=== PATIENT | male | born 2000 | race Caucasian/White ===

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

== ENCOUNTER 2018-02-06 11:44 | Emergency (ER) | payer BC ==
[2018-02-06 11:51] VITALS: BP 144/76; PULSE 109; TEMP 98.9; BMI 20.9
--- NOTE | 2018-02-06 12:48 | PDOC ---
History of Present Illness - General Chief Complaint: Lethargy Stated Complaint: UNABLE TO SLEEP, FATIGUE - History of Present Illness Initial Comments: 17-year-old male without comorbidities presents for evaluation of decreased sleep 2 weeks. He states it got worse over the last 48 hours upon his return from [facility]. He has no other associated symptoms besides tiredness and inability to sleep. 02/06/18 12:44 Past History - Past Medical History Allergies/Adverse Reactions: Allergies Allergy/AdvReac Type Severity Reaction Status Date / Time No Known Allergies Allergy Unverified 02/06/18 12:23 Home Medications: Ambulatory Orders Diphenhydramine [Benadryl -] 50 mg PO DAILY #10 capsule 02/06/18 COPD: No - Surgical History Appendectomy: Yes - Immunization History Immunization Up to Date: Yes - Suicide/Smoking/Psychosocial Hx Smoking History: Never smoked Have you smoked in the past 12 months: Yes Number of Cigarettes Smoked Daily: 0 If you are a former smoker, when did you quit?: MARIJUANA 'Breaking Loose' booklet given: 03/13/16 Hx Alcohol Use: Yes Drug/Substance Use Hx: Yes (LSD 1 month ago) Substance Use Type: Alcohol, Marijuana Review of Systems - Review of Systems Neurological: Yes: See HPI All Other Systems: Reviewed and Negative *Physical Exam - Vital Signs Last Vital Signs Temp Pulse Resp BP Pulse Ox 98.9 F 109 H 18 144/76 100 02/06/18 11:48 02/06/18 11:48 02/06/18 11:48 02/06/18 11:48 02/06/18 11:48 - Physical Exam Comments: HEAD: NC/AT EYES: Conjuntiva clear Ears: Canals and TM's normal NOSE: No d/c THROAT: Moist mucous membrances, oral pharanx clear, uvula midline NECK: Supple without adenopathy CARDIAC: S1 S2 LUNGS: CTA Full and Equal breath sounds ABDOMEN: Soft NT ND MS: Full ROM in all joints without edema NEUROLOGIC: No gross sensory or motor deficits, NVID SKIN: Normal color and temperature no lesions or rashes 02/06/18 12:45 Medical Decision Making - Medical Decision Making I will give him a prescription for Benadryl and have improved follow up with his primary care physician. 02/06/18 12:45 *DC/Admit/Observation/Transfer Diagnosis at time of Disposition: Sleep deficient - Discharge Dispostion Disposition: HOME Condition at time of disposition: Stable Decision to Admit order: No - Referrals Referrals: Jennifer Crockett MD [Primary Care Provider] - - Patient Instructions Printed Discharge Instructions: Insomnia Additional Instructions: Return to the emergency room should his symptoms worsen or go on resolve. Take the medication as directed. Follow up with her primary care physician a 1-2 days for further evaluation and treatment options. - Post Discharge Activity
== END 2018-02-06 13:02 | disposition home or self-care (01) ==
LOC: JERFT 11:44
DX: Z72.820 Sleep deprivation (principal)
CPT/HCPCS: 99281-25

== ENCOUNTER 2018-02-07 08:23 | Emergency (ER) | payer BC ==
[2018-02-07 08:29] VITALS: BP 123/60; PULSE 92; TEMP 98.2; BMI 20.9
[2018-02-07] MEDS ORDERED: SODIUM CHLORIDE 1,000 ML IV STA (09:16)
[2018-02-07 09:38] LABS: BASO % 0.5 % (0-2.0); HEMATOCRIT 43.1 % (35.4-49); HEMOGLOBIN 14.9 GM/dL (11.7-16.9); LYMPH % 17.6 % (8-40); MCH 33.4 pg (25.7-33.7); MCHC 34.6 g/dl (32.0-35.9); MEAN CELL VOLUME 96.4 fl (80-96); MEAN PLT VOLUME 7.7 fl (7.5-11.1); MONO % 8.6 % (3.8-10.2); NEUT % 72.3 % (42.8-82.8); PLATELET COUNT 302 K/MM3 (134-434); RBC 4.47 M/mm3 (4.00-5.60); RDW 11.7 % (11.9-15.9); WHITE BLOOD COUNT 6.4 K/mm3 (4.0-10.0)
[2018-02-07 09:46] LABS: URINE APPEARANCE CLEAR; URINE BILIRUBIN NEGATIVE (<2.0 mg/dL); URINE COLOR LTYELLOW; URINE GLUCOSE (UA) NEGATIVE (NEGATIVE); URINE KETONE NEGATIVE (NEGATIVE); URINE LEUK ESTERASE NEGATIVE (NEGATIVE); URINE NITRITE NEGATIVE (NEGATIVE); URINE PROTEIN NEGATIVE (NEGATIVE); URINE UROBILINOGEN NEGATIVE mg/dL (0.2-1.0)
[2018-02-07 09:54] LABS: COCAINE, UR NEGATIVE ng/ml (CUTOFF=300); METHADONE, UR NEGATIVE ng/ml (CUTOFF=300); OPIATES, URI NEGATIVE ng/ml (CUTOFF=300); PHENCYCLIDINE,URINE NEGATIVE ng/ml (CUTOFF=25); URINE AMPHETAMINES NEGATIVE ng/ml (CUTOFF=500); URINE BARBITURATES NEGATIVE ng/ml (CUTOFF=200); URINE BENZODIAZEPINES NEGATIVE ng/ml (CUTOFF=200)
[2018-02-07 10:09] LABS: ALBUMIN 4.9 g/dl (3.4-5.0); ANION GAP 8 (8-16); CALCIUM 9.6 mg/dL (8.5-10.1); CHLORIDE 104 mmol/L (98-107); CO2 28 mmol/L (21-32); GLUCOSE,RANDOM 95 mg/dL (74-106); POTASSIUM 4.2 mmol/L (3.5-5.1); SGOT/AST 12 U/L (15-37); SGPT/ALT 15 U/L (12-78); SODIUM 140 mmol/L (136-145)
[2018-02-07 10:12] LABS: ALK PHOS 61 U/L (45-117); BLOOD UREA NITROGEN 9 mg/dL (7-18)
--- NOTE | 2018-02-07 10:26 | PDOC ---
History of Present Illness - General Chief Complaint: Psychiatric Stated Complaint: UNABLE TO SLEEP Time Seen by Provider: 02/07/18 08:50 History Source: Patient Exam Limitations: No Limitations - History of Present Illness Initial Comments: 02/07/18 10:29 17-year-old male presents to the emergency room with complaints of difficulty sleeping for the past 4 days. Patient states the past week intermittent bouts of insomnia but has worsened since returning from [facility] on Tuesday night. Patient states was seen here yesterday and was prescribed Benadryl which he took last night and states did not improve his symptoms. Patient states feels very anxious but denies any homicidal suicidal thoughts, hallucinations, or feeling of helplessness. Patient denies psych history but states has used drugs in the past and spelled marijuana approximately 2 weeks ago. Patient denies alcohol usage, family psych history or recent illness. Patient has no complaint of chest pain, difficulty breathing, fever, chills, change in appetite, or change in behavior. Timing/Duration: constant Severity: moderate Associated Symptoms: reports: denies symptoms Past History - Travel Traveled outside of the country in the last 30 days: No - Past Medical History Allergies/Adverse Reactions: Allergies Allergy/AdvReac Type Severity Reaction Status Date / Time No Known Allergies Allergy Unverified 02/07/18 09:45 Home Medications: Ambulatory Orders Diphenhydramine [Benadryl -] 50 mg PO DAILY #10 capsule 02/06/18 Melatonin 3 mg PO HS #30 tablet 02/07/18 COPD: No - Surgical History Appendectomy: Yes - Immunization History Immunization Up to Date: Yes - Suicide/Smoking/Psychosocial Hx Smoking History: Never smoked Have you smoked in the past 12 months: Yes Number of Cigarettes Smoked Daily: 0 If you are a former smoker, when did you quit?: MARIJUANA,LSD Information on smoking cessation initiated: No 'Breaking Loose' booklet given: 02/07/18 Hx Alcohol Use: No Drug/Substance Use Hx: Yes (LSD) Substance Use Type: Alcohol, Marijuana Patient Lives Alone: No Lives with/in: parents Review of Systems - Review of Systems Able to Perform ROS?: No Constitutional: Yes: Malaise. No: Loss of Appetite HEENTM: No: Symptoms Reported Respiratory: No: Symptoms reported Cardiac (ROS): No: Symptoms Reported ABD/GI: No: Symptoms Reported : No: Symptoms Reported Musculoskeletal: No: Symptoms Reported Integumentary: No: Symptoms Reported Neurological: No: Symptoms reported Psychiatric: Yes: Sleep Pattern Change. No: Stressors, Emotional Problems, Mood Swings, Change in Appetite Endocrine: No: Symptoms Reported Hematologic/Lymphatic: No: Symptoms Reported *Physical Exam - Vital Signs Last Vital Signs Temp Pulse Resp BP Pulse Ox 98.2 F 92 H 18 123/60 100 02/07/18 08:25 02/07/18 08:25 02/07/18 08:25 02/07/18 08:25 02/07/18 08:25 - Physical Exam General Appearance: Yes: Nourished, Appropriately Dressed. No: Apparent Distress HEENT: positive: EOMI, HONEY, TMs Normal, Pharynx Normal (dry) Neck: positive: Supple Respiratory/Chest: positive: Lungs Clear, Normal Breath Sounds. negative: Respiratory Distress, Accessory Muscle Use Cardiovascular: positive: Regular Rhythm, Regular Rate. negative: Murmur Extremity: positive: Normal Capillary Refill. negative: Pedal Edema Integumentary: positive: Normal Color, Warm, Moist Neurologic: positive: Normal Mood/Affect (mildly anxious, good eye contact, controlled voice tone), Motor Strength 5/5 (ambulatory) ED Treatment Course - LABORATORY CBC & Chemistry Diagram: 02/07/18 09:28 02/07/18 09:28 - ADDITIONAL ORDERS Additional order review: Laboratory Results 02/07/18 02/07/18 09:32 09:32 Urine Color Ltyellow Urine Appearance Clear Urine pH 7.0 D Ur Specific [place] 1.012 Urine Protein Negative Urine Glucose (UA) Negative Urine Ketones Negative Urine Blood Negative Urine Nitrite Negative Urine Bilirubin Negative Urine Urobilinogen Negative Ur Leukocyte Esterase Negative Opiates Screen Negative Methadone Screen Negative Barbiturate Screen Negative Phencyclidine Screen Negative Ur Amphetamines Screen Negative MDMA (Ecstasy) Screen Negative Benzodiazepines Screen Negative Cocaine Screen Negative U Marijuana (THC) Screen Positive 02/07/18 09:28 RBC 4.47 MCV 96.4 H MCHC 34.6 RDW 11.7 L MPV 7.7 Neutrophils % 72.3 Lymphocytes % 17.6 Monocytes % 8.6 Eosinophils % 1.0 Basophils % 0.5 Medical Decision Making - Medical Decision Making 02/07/18 10:36 Patient complains of insomnia for the past 4 days without relief with Benadryl which was prescribed yesterday. Patient on exam had no concern for acute pathology but will check labs for electrolyte derangement, infection, and anemia. Patient also ordered for urine toxicology since he states smoke marijuana and [place] to check for other illicit drug use. Patient also ordered for EKG. 02/07/18 11:40 Laboratory Tests 02/07/18 02/07/18 02/07/18 09:28 09:28 09:32 WBC 6.4 Hgb 14.9 Hct 43.1 MCV 96.4 H Plt Count 302 Sodium 140 Potassium 4.2 Chloride 104 Carbon Dioxide 28 Anion Gap 8 BUN 9 Creatinine 1.0 Random Glucose 95 Magnesium 2.0 Total Bilirubin 4.0 H AST 12 L Urine Ketones Negative Ur Leukocyte Esterase Negative Opiates Screen Methadone Screen Barbiturate Screen Phencyclidine Screen U Marijuana (THC) Screen 02/07/18 09:32 WBC Hgb Hct MCV Plt Count Sodium Chloride Carbon Dioxide Anion Gap BUN Creatinine Random Glucose Magnesium Total Bilirubin AST Urine Ketones Ur Leukocyte Esterase Opiates Screen Negative Methadone Screen Negative Barbiturate Screen Negative Phencyclidine Screen Negative U Marijuana (THC) Screen Positive Pt did not have GI complaints, fever, jaundice on exam or abd pain. hepatitis panel added due to recent travel. Will discharge home with melatonin and psychiatry referral since father states pt has difficulty with sleep over the years(staying up all night and sleeping all day). 02/07/18 11:47 Spoke to father and updated him on the hepatitis panel. Supportive care instructions given along with recommendations to follow up with PCP for retesting. Father states patient is doing much better and has no other complaints presently 02/10/18 09:07 *DC/Admit/Observation/Transfer Diagnosis at time of Disposition: Sleep deficient - Discharge Dispostion Disposition: HOME Condition at time of disposition: Good - Prescriptions Prescriptions: Melatonin 3 mg PO HS #30 tablet - Referrals Referrals: Paras Raymond NP [Nurse Practitioner] - - Patient Instructions Printed Discharge Instructions: Insomnia (Alternative Therapy), DI for Insomnia Additional Instructions: Please try to have a routine during the day to allow proper sleep at night. Try reading a book prior to going to bed versus using your phone or watching TV. Please also follow up with referred psychologist. - Post Discharge Activity
--- NOTE | 2018-02-07 16:25 | EKG ---
Test Reason : Blood Pressure : / mmHG Vent. Rate : 069 BPM Atrial Rate : 069 BPM P-R Int : 134 ms QRS Dur : 086 ms QT Int : 400 ms P-R-T Axes : 003 069 058 degrees QTc Int : 428 ms NORMAL SINUS RHYTHM EARLY REPOLARIZATION NORMAL ECG NO PREVIOUS ECGS AVAILABLE Confirmed by Wayne Arias MD ([id number]) on 02/07/2018 4:24:51 PM Referred By: Confirmed By:Wayne Arias MD
[2018-02-10 00:08] LABS: HBSAG SCREEN Negative (Negative); HEP A AB, IGM Negative (Negative); HEP B CORE AB, TOT Negative (Negative)
== END 2018-02-07 11:41 | disposition home or self-care (01) ==
LOC: JER 08:23
PROC: 3E0337Z Introduction of Electrolytic and Water Balance Substance into Peripheral Vein, Percutaneous Approach (ICD-10-PCS; principal; 2018-02-07)
DX: Z72.820 Sleep deprivation (principal)
CPT/HCPCS: 36415; 80053; 80307; 81003; 83735; 85025; 86704; 86706; 86708; 87340; 93005; 93010; 99283-25; J7030

== ENCOUNTER 2019-07-14 17:10 | Emergency (ER) | payer BC, OTHER ==
[2019-07-14 17:25] VITALS: BP 114/60; PULSE 90; TEMP 98.5; BMI 23.5
--- NOTE | 2019-07-14 18:42 | PDOC ---
History of Present Illness - General Chief Complaint: Chest Pain Stated Complaint: CHEST PAINS Time Seen by Provider: 07/14/19 17:45 History Source: Patient Exam Limitations: No Limitations - History of Present Illness Initial Comments: 07/14/19 18:36 Patient is a 19-year-old male with history of insomnia who presents to the ED with complaint of diffuse chest pain that he has had for the last 2 to 3 weeks. He states that the pain is just a "weird feeling". He denies pressure. He denies any radiation to his jaw, neck, back. He does admit to smoking marijuana but denies any other illicit drugs. He does admit to stopping his Seroquel and stating that his insomnia has worsened because of that. He denies any fevers or chills. He denies any recent URI. He states that he does believe that this is likely secondary to his anxiety. He supposed to take Seroquel nightly and hydroxyzine as needed but he does admit to not taking it. He denies any recent long travel, history of cancer, cigarette smoking. He denies any family history of DVT or PE. He denies any known coagulopathies. Past History - Past Medical History Allergies/Adverse Reactions: Allergies Allergy/AdvReac Type Severity Reaction Status Date / Time No Known Allergies Allergy Unverified 02/07/18 09:45 Home Medications: Ambulatory Orders Diphenhydramine [Benadryl -] 50 mg PO DAILY #10 capsule 02/06/18 Melatonin 3 mg PO HS #30 tablet 02/07/18 Quetiapine Fumarate [Seroquel -] 50 mg PO HS #30 tablet 02/28/19 Quetiapine Fumarate [Seroquel] 100 mg PO HS #30 tablet 02/28/19 COPD: No Psychiatric Problems: Yes Other medical history: substance abuse - Surgical History Appendectomy: Yes - Immunization History Immunization Up to Date: Yes - Psycho Social/Smoking Cessation Hx Smoking History: Current every day smoker Have you smoked in the past 12 months: Yes Number of Cigarettes Smoked Daily: 0 If you are a former smoker, when did you quit?: MARIJUANA,LSD Information on smoking cessation initiated: No 'Breaking Loose' booklet given: 02/07/18 Hx Alcohol Use: No Drug/Substance Use Hx: No Substance Use Type: Alcohol, Marijuana Review of Systems - Review of Systems Comments:: 07/14/19 18:38 - Review of Systems Able to Perform ROS?: Yes Constitutional: No: Fever, Chills, Loss of Appetite, Night Sweats, Weakness, + insomnia HEENTM: No: Eye Pain, Vision changes, Ear Pain, Throat Pain, Throat Swelling, Mouth Pain, Difficulty Swallowing Respiratory: No: Cough, Shortness of Breath, Wheezing, Sputum Production Cardiac (ROS): No: Chest Tightness, Palpitations, Irregular Heart Beat, Edema, + Chest Pain ABD/GI: No: Nausea, Vomiting, Abdominal Pain, Diarrhea : No Dysuria, No Hematuria, No Frequency, No Urgency Musculoskeletal: No: Muscle Pain, Back Pain, Joint Pain, Muscle Weakness, Neck Pain Integumentary: No: Lesions, Rash Neurological: No: Headache, Numbness, Tingling, Weakness, Speech Difficulties *Physical Exam - Vital Signs Last Vital Signs Temp Pulse Resp BP Pulse Ox 98.5 F 90 20 114/60 99 07/14/19 17:21 07/14/19 17:21 07/14/19 17:21 07/14/19 17:21 07/14/19 17:21 - Physical Exam 07/14/19 18:39 - Physical Exam General Appearance: Nourished, Appropriately Dressed, No Distress HEENT: EOMI, Normal Voice, No Pharyngeal Erythema, No Nasal Congestion, No Rhinorrhea, Hearing Grossly Normal No Muffled/Hoarse voice Neck: Supple, No Lymphadenopathy (R), No Lymphadenopathy (L), No Rigidity, No Decreased range of motion Respiratory/Chest: Lungs Clear, Normal Breath Sounds. No Respiratory Distress, No Accessory Muscle Use Cardiovascular: Regular Rhythm, Regular Rate, S1, S2 Gastrointestinal/Abdominal: Normal Bowel Sounds, Soft. Non-tender, No Guarding , No Rebound, No Rigidity Musculoskeletal: Normal Inspection. No Decreased Range of Motion Extremity: Normal Capillary Refill, Normal Inspection Integumentary: Normal Color, Dry. No Rash Neurologic: medical records clerk II-XII NML intact, Fully Oriented, Alert, Normal Mood/Affect, Normal Response Heart Score/ECG Review - ECG Intrepretation Rhythm: Regular Rhythm Comment:: 07/14/19 18:40 Normal sinus rhythm at [address]/T wave abnormalities. ED Treatment Course - RADIOLOGY Radiology Studies Ordered: Category Date Time Status CHEST PA & LAT [RAD] Stat Radiology 07/14/19 18:34 Ordered Medical Decision Making - Medical Decision Making 07/14/19 19:16 Patient is feeling much better. He does admit to taking a hydroxyzine before coming into the ED and states it helped. He has been encouraged to take his Seroquel at night to help him sleep. His chest x-ray was negative and his EKG was within normal limits. The patient should follow-up with a primary doctor within 1 to 2 days for repeat evaluation. He understands and agrees to treatment plan and he is stable for discharge. Discharge - Discharge Information Problems reviewed: Yes Clinical Impression/Diagnosis: Atypical chest pain, Anxiety Condition: Stable Disposition: HOME - Follow up/Referral Referrals: [facility] [place] [Provider Group] - Patient Discharge Instructions Patient Printed Discharge Instructions: DI for Atypical Chest Pain, DI for Anxiety -- Adult Additional Instructions: Get plenty of rest and drink plenty of fluids. Be sure to take your Seroquel as prescribed and take your hydroxyzine as needed. Follow-up with primary care within 1 to 2 days for repeat evaluation. - Post Discharge Activity
--- NOTE | 2019-07-17 12:43 | EKG ---
Test Reason : Blood Pressure : / mmHG Vent. Rate : 068 BPM Atrial Rate : 068 BPM P-R Int : 134 ms QRS Dur : 088 ms QT Int : 398 ms P-R-T Axes : -06 076 072 degrees QTc Int : 423 ms NORMAL SINUS RHYTHM NORMAL ECG WHEN COMPARED WITH ECG OF 07-FEB-2018 09:44, NO SIGNIFICANT CHANGE WAS FOUND Confirmed by MD Edwards Daniel ([id number]) on 07/17/2019 12:43:28 PM Referred By: Confirmed By:Kevin Edwards MD
== END 2019-07-14 19:23 | disposition home or self-care (01) ==
LOC: JER 17:10
DX: R07.9 Chest pain, unspecified (principal); F41.9 Anxiety disorder, unspecified
CPT/HCPCS: 71046-TC-FY; 93005; 93010; 99281-25